=== PATIENT | female | born 1975 | race Caucasian/White ===

== ENCOUNTER 2018-06-08 07:19 | Day surgery (SDC) | payer OTHER ==
[2018-06-08 07:56] VITALS: BMI 28.6
[2018-06-08 08:03] VITALS: PULSE 80; RESP 20; TEMP 98.4; O2SAT 99
--- NOTE | 2018-06-08 08:23 | CP.SDSHP ---
Same Day Surgery H & P - History Proposed Procedure: COLONSCOPY Pre-Op Diagnosis: SEE NOTES - Previous Medical/Surgical History Misc: Other Pain: 4.Moderate Pain - Allergies Allergies: Allergies No Known Allergies Allergy (Verified 06/08/18 07:56) - Physical Exam General Appearance: N Vital Signs: Vital Signs 06/08/18 07:56 Temperature 98.4 F Pulse Rate 80 Respiratory 20 Rate Blood Pressure 108/85 O2 Sat by Pulse 99 Oximetry Mental Status: Alert & Oriented x3 Neuro: WNL Heart: WNL GI: Other Social History: Smoking - {Optional Preform as Required} Breast: WNL Integument: WNL : WNL - Impression Pt. Evaluated Today:Candidate for Anesthesia & Procedure: Yes - Date & Time Time: 08:22 Short Stay Discharge - Short Stay Discharge Admitting Diagnosis/Reason for Visit: RECTAL BLEEDING Disposition: HOME/ ROUTINE
[2018-06-08] MEDS ORDERED: Belladonna-Phenobarbital PO ONE (08:24)
[2018-06-08] MEDS ORDERED: Propofol 10 mg/ml Inj (20 ML) ONE (08:28)
[2018-06-08] MEDS ORDERED: Lactated Ringer's 500 ML IV SCH (08:30)
[2018-06-08 09:33] VITALS: BP 119/79
== END 2018-06-08 09:33 | disposition home or self-care (01) ==
LOC: C.ENDO 07:19
PROVIDERS: ATTEND Specialist
DX: K52.9 Noninfective gastroenteritis and colitis, unspecified (principal); K60.2 Anal fissure, unspecified; K64.8 Other hemorrhoids; K64.4 Residual hemorrhoidal skin tags; K62.5 Hemorrhage of anus and rectum
CPT/HCPCS: 45380; 88305; J2704; J3010; J7120